=== PATIENT | male | born 2000 | race Caucasian/White ===

== ENCOUNTER 2022-06-08 19:32 | Emergency (ER) | payer MEDICAID ==
[~2022-06-08] VITALS: Ht 175.3 cm; Wt 82.0 kg
[2022-06-08 19:43] VITALS: BP 141/74
== END 2022-06-08 21:30 | disposition left against medical advice (07) ==
LOC: ER 19:32
DX: Z53.21 Procedure and treatment not carried out due to patient leaving prior to being seen by health care provider (principal)